=== PATIENT | female | born 1970 | race Caucasian/White ===

== ENCOUNTER → 2017-03-29 | Outpatient (CLI) | payer OTHER ==
--- NOTE | 2017-03-29 09:17 | RAD ---
DATE: 03/29/2017 EXAM: DIGITAL SCREEN BILAT W/CAD HISTORY: Screening note is made of the positive family history for breast malignancy COMPARISON: 01/28/2016 This study was interpreted with the benefit of Computerized Aided Detection (CAD). FINDINGS: Breast Density: SCATTERED The breast parenchyma shows scattered fibroglandular densities. Breast parenchyma level B. There has not been a significant change in the appearance of the breasts. Biopsy clip is noted in the right breast. Lymph node is noted in the right axilla. IMPRESSION: Benign findings BI-RADS CATEGORY: 2 BENIGN FINDING(S) RECOMMENDED FOLLOW-UP: 12M 12 MONTH FOLLOW-UP PQRS compliance statement: Patient information was entered into a reminder system with a target due date 03/29/2018 for the next mammogram. Mammography is a sensitive method for finding small breast cancers, but it does not detect them all and is not a substitute for careful clinical examination. A negative mammogram does not negate a clinically suspicious finding and should not result in delay in biopsying a clinically suspicious abnormality. "Our facility is accredited by the [employer] Mammography [employer]."
== END | disposition home or self-care (01) ==
LOC: MAMMO 08:29
PROVIDERS: ATTEND Family Medicine
DX: Z12.31 Encounter for screening mammogram for malignant neoplasm of breast (principal)
CPT/HCPCS: G0202; 77067

== ENCOUNTER → 2018-05-09 | Outpatient (CLI) | payer OTHER | END | disposition home or self-care (01) | LOC: MAMMO 08:01 | DX: Z12.31 Encounter for screening mammogram for malignant neoplasm of breast (principal) | CPT/HCPCS: 77067 ==

== ENCOUNTER → 2018-05-20 | Outpatient (CLI) | payer OTHER | END | disposition home or self-care (01) | LOC: MAMMO 09:53 | DX: R92.8 Other abnormal and inconclusive findings on diagnostic imaging of breast (principal) | CPT/HCPCS: 76641; 77065; G0279 ==

== ENCOUNTER → 2018-11-27 | Outpatient (CLI) | payer OTHER ==
--- NOTE | 2018-11-28 08:07 | RAD ---
Limited right breast ultrasound 11/27/2018 Clinical indication: Follow-up 2 right breast nodules. Comparison: Ultrasound 05/20/2018, mammogram 05/20/2018. Findings: At the 8:00 position 4.5 cm from the nipple, there is a stable old, circumscribed, hypoechoic mass with no internal vascularity measuring 1.2 x 1.0 x 0.7 cm, previously 1.2 x 1.0 x 0.7 cm. At the 8:00 position, 4.5 cm from the nipple, there is a stable cyst with a few thin internal septations and no evidence of internal vascularity measuring 0.5 x 0.2 x 0.6 cm, previously 0.5 x 0.2 x 0.6 cm. Impression: 1. Stable 8:00 position right breast mass. Follow-up ultrasound in 6 months and patient will be due for bilateral screening mammogram at the same time. 2. Stable cyst with a few thin internal septations at the 8:00 position right breast, likely comminuted cyst. This should also be followed with the above finding in 6 months. Assessment: BI-RADS Category 3, probably benign. Recommendation: As above
== END | disposition home or self-care (01) ==
LOC: US 14:50
PROVIDERS: ATTEND Family Medicine
DX: N60.01 Solitary cyst of right breast (principal); N63.13 Unspecified lump in the right breast, lower outer quadrant
CPT/HCPCS: 76641

== ENCOUNTER → 2019-07-10 | Outpatient (CLI) | payer OTHER ==
--- NOTE | 2019-07-10 18:40 | RAD ---
BILATERAL SCREENING MAMMOGRAM History: Routine screening. Comparison: 03/29/2017, 04/09/2018 screening mammographic exams, right breast ultrasound exams dated 05/20/2018 and 11/27/2018. Technique: Routine bilateral digital mammogram views were obtained. Findings: Breast Tissue Density B : There are scattered areas of fibroglandular density. There are no dominant masses, suspicious microcalcifications, or architectural distortion in the interval. Ultrasound imaging of the right breast was performed. At 8:00 region 4.5 cm from the nipple, there is a 1 cm x 1.1 cm x 0.7 cm tall hypoechoic well-circumscribed mass which has remained stable. Also in this region is a 0.4 cm x 0.5 cm x 0.2 cm diameter cyst with internal echoes that has remained stable. No suspicious new lesion. IMPRESSION: No mammographic evidence of malignancy. Recommend routine mammographic screening. Ultrasound imaging in one year at the time of annual screening is recommended to assess stability of the patient's known mass. BI-RADS category 3: Probably benign. The images were reviewed with computer aided detection. Patient information is entered into the reminder system with a target due date for the next screening mammogram. Mammography is the most sensitive method for finding small breast cancers, but it does not detect them all and is not a substitute for careful clinical examination. A negative mammogram does not negate a clinically suspicious finding and should not result in delay in biopsying a clinically suspicious abnormality. "Our facility is accredited by the [employer] Mammography [employer]." Electronically signed by: Osmar Garcia MD (07/10/2019 6:37 PM) [facility]
== END | disposition home or self-care (01) ==
LOC: MAMMO 14:09
PROVIDERS: ATTEND Family Medicine
DX: Z12.31 Encounter for screening mammogram for malignant neoplasm of breast (principal); N60.01 Solitary cyst of right breast; N63.13 Unspecified lump in the right breast, lower outer quadrant
CPT/HCPCS: 76641; 77067

== ENCOUNTER → 2020-07-22 | Outpatient (CLI) | payer OTHER ==
--- NOTE | 2020-07-22 09:43 | RAD ---
BILATERAL SCREENING MAMMOGRAM, limited right breast ultrasound History: Routine screening. Comparison: 01/06/2015, 01/28/2016, 17, 05/09/2018, 07/10/2019 mammograms. 05/20/2018, 11/27/2018, 07/10/2019 right breast ultrasound exams. Technique: Routine bilateral digital mammogram views were obtained. Findings: Breast Tissue Density B : There are scattered areas of fibroglandular density. There are no dominant masses, suspicious microcalcifications, or architectural distortion. Limited right breast ultrasound exam was performed. At the right breast 8:00 region 4.5 cm from the nipple, there is a 1.1 cm x 1.1 cm x 0.7 cm all hypoechoic well-circumscribed mass which has remained stable since 05/20/2018. Also at 8:00 region 4.5 cm from the nipple, there is a 0.6 x 0.2 cm x 0.6 cm mass which has remained stable since the previous exam 05/20/2018 considering differences in technique. Right axillary lymph nodes are benign in appearance. IMPRESSION: No mammographic evidence of malignancy. Recommend routine screening. BI-RADS category 1: Negative. The images were reviewed with computer aided detection. Patient information is entered into the reminder system with a target due date for the next screening mammogram. Mammography is the most sensitive method for finding small breast cancers, but it does not detect them all and is not a substitute for careful clinical examination. A negative mammogram does not negate a clinically suspicious finding and should not result in delay in biopsying a clinically suspicious abnormality. "Our facility is accredited by the [employer] Mammography Program." Electronically signed by: Osmar Garcia MD (07/22/2020 9:41 AM) [id number]
== END | disposition home or self-care (01) ==
LOC: MAMMO 08:34
PROVIDERS: ATTEND Family Medicine
DX: Z12.31 Encounter for screening mammogram for malignant neoplasm of breast (principal)
CPT/HCPCS: 76641; 77067

== ENCOUNTER → 2021-08-10 | Outpatient (CLI) | payer OTHER ==
--- NOTE | 2021-08-10 16:47 | RAD ---
Bilateral digital screening mammograms: Reason for examination: Routine screening. Comparison is made to previous mammograms dated 07/22/2020, and 07/10/2019. Correlation is made to the right breast ultrasound from 07/10/2019. Interpretation was made with the benefit of CAD. Findings: Breast density: Category C. The breasts are heterogeneously dense, which may obscure small masses.. There are no new suspicious masses, suspicious calcifications or architectural distortions. There is nodularity on the right MLO view slightly below the level the nipple line, about 2 cm inferior to the biopsy marker. This is seen adjacent to the biopsy marker on the CC image and correlates with the pr obably benign mass seen on 2019 ultrasound. This has not changed. Impression: No evidence of malignancy. Assessment: BI-RADS Category 2. Benign findings. Recommendation: Routine screening mammograms. This patient's information has been entered into a reminder system for the patient to be notified wit h the results of her examination and a target date for the next mammogram. Your patient's mammogram demonstrates that she has dense breast tissue (breast density category C or D), which could hide abnormalities, and if she has other risk factors for breast cancer that have bee n identified, she might benefit from supplemental screening tests that may be suggested by you as her ordering physician. Dense breast tissue, in and of itself, is a relatively common condition. Therefo re, this information is not provided to cause undue concern, but rather to raise your awareness and t o promote discussion with your patient regarding the presence of other risk factors, in addition to d ense breast tissue. Electronically signed by: Nkechi Ulloa MD (08/10/2021 4:45 PM) [id number]
== END ==
LOC: MAMMO 08:44
PROVIDERS: ATTEND Family Medicine
DX: Z12.31 Encounter for screening mammogram for malignant neoplasm of breast (principal)
CPT/HCPCS: 77067

== ENCOUNTER → 2022-02-09 | Outpatient (CLI) | payer OTHER ==
--- NOTE | 2022-02-09 16:16 | RAD ---
Lumbar spine 3 views. HISTORY: Lumbar back pain radiating to upper thigh 3 views were taken of the lumbar spine. There is disc space narrowing at L5-S1. There is a transition al S1 vertebra with partial sacralization. Remaining disc spaces are normal in height. There is no ac [place] fracture. There is increased stool in the colon. IMPRESSION: 1. Transitional S1 vertebra. 2. Disc space narrowing at the lumbosacral junction. 3. No fracture or other acute osseous abnormality. Electronically signed by: Hank Paez MD (02/09/2022 4:14 PM) [facility]
== END ==
LOC: RAD 15:33
PROVIDERS: ATTEND Family Medicine
DX: M48.07 Spinal stenosis, lumbosacral region (principal); R93.7 Abnormal findings on diagnostic imaging of other parts of musculoskeletal system; M54.41 Lumbago with sciatica, right side
CPT/HCPCS: 72100